=== PATIENT | female | born 1990 | race Caucasian/White ===

== ENCOUNTER 2017-09-05 05:02 | Emergency (ER) | payer OTHER ==
[~2017-09-05] VITALS: Ht 152.4 cm; Wt 74.8 kg
[~2017-09-05 05:02] MED LIST: ACETAMINOPHEN-O1 TAB PO; AMOXICILLIN500 M2 PO; AMOXICILLIN500 MG PO; AMOXIL500 MG PO; ATARAX25 MG PO; BACTROBAN CREAM15 GM T; CELEXA20 MG PO; CEPHALEXIN500 M1 PO; CIPRO250 MG PO; CIPRO500 MG PO; CIPROFLOXACIN500 MG PO; CLEOCIN150 MG PO; CLINDAMYCIN HC300 MG PO; CORDROL20 MG PO; DARVOCET N 1001 TAB PO; DIAZEPAM10 M1 PO; DICLEGIS DR 101 EACH PO; DIFLUCAN150 MG PO; EES400 MG PO; FIORICET 325 MG1 TAB PO; FLAGYL500 MG PO; FLONASE 0.05% 121 EA NAS; GLYCERIN SUPPOS1 SU4 RC; HYDROCODONE BIT1 T11 PO; IBU800 M1 PO; KEFLEX500 MG PO; KLONOPIN1 M1 PO; LAMICTAL25 MG PO; LAMISIL1% T; LAMOTRIGINE100 MG PO; LAMOTRIGINE25 M1 PO; LIDEX0.05% T; LOMOTIL 0.025 M1 TA1 PO; MACROBID100 M1 PO; MEDROL DOSEPAK4 MG PO; MEDROL4 MG PO; MOTRIN600 MG PO; MOTRIN800 MG PO; NAPROSYN500 MG PO; NITROFURANTOIN100 M2 PO; NKHM; NYSTATIN CREAM15 GM T; PEN-VEE K500 MG PO; PERCOCET 325 MG1 TA2 PO; PHENERGAN W/DM120 ML PO; PHENERGAN25 M1 PO; PREDNICOT10 MG PO; PREDNICOT20 MG PO; PRENATAL1 TA2 PO; PRENATAL1 TA3 PO; PYRIDIUM100 MG PO; Peridex 473 ML473 ML PO; Phenergan25 MG PO; TESSALON PERLE200 MG PO; ULTRAM50 MG PO; VALIUM10 MG PO; VIBRAMYCIN100 MG PO; VICODIN 5/500 505 MG PO; VICODIN 500 MG-1 TAB PO; XYLOCAINE VISCO20 ML MM; ZANTAC150 MG PO; ZITHROMAX Z PA250 MG PO; ZITHROMAX250 MG PO; ZOFRAN ODT4 MG SL; ZOFRAN4 MG PO; ZYRTEC10 MG PO; Zofran4 MG PO
[2017-09-05] MEDS ORDERED: LAMICTAL ODT50 MG PO (05:10)
[2017-09-05] MEDS ORDERED: VALIUM5 MG PO (05:10)
[2017-09-05 06:22] LABS: BILIRUBIN NEGATIVE (NEGATIVE); BLOOD NEGATIVE (NEGATIVE); CLARITY SL CLOUDY (CLEAR); COLOR YELLOW (YELLOW); GLUCOSE NEGATIVE (NEGATIVE); KETONE NEGATIVE (NEGATIVE); LEUKO ESTERASE NEGATIVE (NEGATIVE); NITRITE NEGATIVE (NEGATIVE); PH 6.5 (5.0-9.0); UROBILINOGEN 0.2 E.U./dl (0.2-1.0)
[2017-09-05 06:29] LABS: URINE AMPHETAMINES < 1000 (1000ng/ml); URINE BARBITURATES < 200 (200ng/ml); URINE BENZODIAZEPINES > 200 (200ng/ml); URINE CANNABINOIDS (THC) < 50 (50ng/ml); URINE COCAINE > 300 (300ng/ml); URINE METHADONE < 300 (300ng/ml); URINE OPIATES < 300 (300ng/ml)
[2017-09-05 06:31] LABS: URINE PHENCYCLIDINE < 25 (25ng/ml)
[2017-09-05 06:49] LABS: BASO % 0.1 % (0.0-1.0); EOS # 0.1 10*3/uL (0.0-0.4); EOS % 0.9 % (1.0-4.0); HEMATOCRIT 36.8 % (37.0-47.0); HEMOGLOBIN 12.3 g/dl (12.0-16.0); LYMPH # 2.5 10*3/uL (1.3-4.4); LYMPH % 26.1 % (27.0-41.0); MEAN CELL VOLUME 87.6 fl (81.0-99.0); MEAN CORPUSCULAR HGB 29.3 pg (27.0-31.0); MEAN CORPUSCULAR HGB CONC 33.4 g/dl (33.0-37.0); MEAN PLATELET VOLUME 8.9 fl (9.6-12.3); MONO # 0.6 10*3/uL (0.1-1.0); MONO % 6.2 % (3.0-9.0); NEUT # 6.4 10*3/uL (2.3-7.9); NEUT % 66.4 % (47.0-73.0); PLATELET COUNT AUTOMATED 227 10*3/uL (130-400); RED CELL DISTRI WIDTH 13.2 % (0-14.5); WHITE BLOOD COUNT 9.7 10*3/uL (4.8-10.8)
[2017-09-05 07:08] LABS: ALBUMIN 3.4 gm/dl (3.1-4.5); ALKALINE PHOSPHATASE 81 U/L (45-117); BUN 15 mg/dl (7-24); CHLORIDE 102 mmol/L (98-107); CREATININE 0.78 mg/dL (0.55-1.02); POTASSIUM 3.8 mmol/L (3.5-5.1); SGOT/AST 22 IU/L (3-35); SGPT/ALT 17 U/L (12-78); SODIUM 136 mmol/L (136-145); TOTAL PROTEIN 6.9 gm/dL (6.4-8.2)
== END 2017-09-05 08:03 | disposition short-term general hospital (02) ==
LOC: ED 05:02
PROVIDERS: Student in an Organized Health Care Education/Training Program
DX: R33.9 Retention of urine, unspecified (principal); M62.81 Muscle weakness (generalized); M54.5 Low back pain; M25.552 Pain in left hip; W01.0XXA Fall on same level from slipping, tripping and stumbling without subsequent striking against object, initial encounter; Y93.89 Activity, other specified; Y92.89 Other specified places as the place of occurrence of the external cause; Y99.9 Unspecified external cause status

== ENCOUNTER 2017-11-19 14:22 | Emergency (ER) | payer SELFPAY ==
[~2017-11-19] VITALS: Wt 72.6 kg
[~2017-11-19 14:22] MED LIST changes: +LAMICTAL ODT50 MG PO; +VALIUM5 MG PO
[2017-11-19] MEDS ORDERED: NAPROSYN500 MG PO (15:25)
[2017-11-19] MEDS ORDERED: CEPHALEXIN500 M1 PO (15:25)
== END 2017-11-19 15:55 | disposition home or self-care (01) ==
LOC: ED 14:22
DX: S91.012A Laceration without foreign body, left ankle, initial encounter (principal); S93.402A Sprain of unspecified ligament of left ankle, initial encounter; E66.9 Obesity, unspecified; F17.200 Nicotine dependence, unspecified, uncomplicated; W25.XXXA Contact with sharp glass, initial encounter; Y93.89 Activity, other specified; Y92.098 Other place in other non-institutional residence as the place of occurrence of the external cause; Y99.9 Unspecified external cause status

== ENCOUNTER 2018-03-15 20:43 | Emergency (ER) | payer SELFPAY ==
[~2018-03-15] VITALS: Ht 154.9 cm; Wt 77.1 kg
[2018-03-15] MEDS ORDERED: HYDROXYZINE HCL25 MG PO (22:14)
[2018-03-15] MEDS ORDERED: KLONOPIN1 M1 PO (22:15)
== END 2018-03-15 22:22 | disposition home or self-care (01) ==
LOC: ED 20:43
DX: F41.9 Anxiety disorder, unspecified (principal); F32.9 Major depressive disorder, single episode, unspecified

== ENCOUNTER 2018-06-05 13:29 | Emergency (ER) | payer OTHER ==
[~2018-06-05 13:29] MED LIST changes: +HYDROXYZINE HCL25 MG PO
== END 2018-06-05 14:24 | disposition home or self-care (01) ==
LOC: ED 13:29
DX: K04.7 Periapical abscess without sinus (principal); F17.200 Nicotine dependence, unspecified, uncomplicated; Z79.2 Long term (current) use of antibiotics; Z79.899 Other long term (current) drug therapy

== ENCOUNTER 2019-08-27 16:40 | Emergency (ER) | payer SELFPAY ==
[~2019-08-27] VITALS: Ht 152.4 cm; Wt 70.3 kg
[2019-08-27] MEDS ORDERED: XANAX2 M1 PO (17:50)
== END 2019-08-27 17:55 | disposition home or self-care (01) ==
LOC: ED 16:40
DX: F41.9 Anxiety disorder, unspecified (principal); Z76.0 Encounter for issue of repeat prescription; Z79.899 Other long term (current) drug therapy; Z79.2 Long term (current) use of antibiotics; Z96.22 Myringotomy tube(s) status; Z87.442 Personal history of urinary calculi; Z86.14 Personal history of Methicillin resistant Staphylococcus aureus infection

== ENCOUNTER 2019-12-08 21:40 | Emergency (ER) | payer OTHER ==
[~2019-12-08] VITALS: Ht 167.6 cm; Wt 86.2 kg
[~2019-12-08 21:40] MED LIST changes: +XANAX2 M1 PO
[2019-12-09] MEDS ORDERED: IBU800 MG PO (00:56)
[2019-12-09] MEDS ORDERED: CLEOCIN HCL150 MG PO (00:56)
== END 2019-12-09 01:47 | disposition home or self-care (01) ==
LOC: ED 21:40
DX: S02.5XXA Fracture of tooth (traumatic), initial encounter for closed fracture (principal); K04.7 Periapical abscess without sinus; X58.XXXA Exposure to other specified factors, initial encounter; Y93.89 Activity, other specified; Y92.89 Other specified places as the place of occurrence of the external cause; Y99.8 Other external cause status

== ENCOUNTER 2022-10-11 20:19 | Emergency (ER) | payer OTHER ==
[~2022-10-11 20:19] MED LIST changes: +CLEOCIN HCL150 MG PO; +IBU800 MG PO
== END 2022-10-11 21:51 | disposition home or self-care (01) ==
LOC: ED 20:19
DX: S80.02XA Contusion of left knee, initial encounter (principal); S80.212A Abrasion, left knee, initial encounter; L50.9 Urticaria, unspecified; F41.9 Anxiety disorder, unspecified; Z87.442 Personal history of urinary calculi; Z98.890 Other specified postprocedural states; W01.0XXA Fall on same level from slipping, tripping and stumbling without subsequent striking against object, initial encounter; Y93.89 Activity, other specified; Y92.009 Unspecified place in unspecified non-institutional (private) residence as the place of occurrence of the external cause; Y99.8 Other external cause status

== ENCOUNTER 2023-11-14 19:36 | Emergency (ER) | payer OTHER ==
[~2023-11-14] VITALS: Ht 152.4 cm; Wt 81.6 kg
[2023-11-14] MEDS ORDERED: fentaNYL CITRATE 100 MCG/2 ML VIAL IV ONE (20:10)
== END 2023-11-14 22:20 | disposition home or self-care (01) ==
LOC: ED 19:36
DX: S20.212A Contusion of left front wall of thorax, initial encounter (principal); S00.12XA Contusion of left eyelid and periocular area, initial encounter; S10.91XA Abrasion of unspecified part of neck, initial encounter; F41.9 Anxiety disorder, unspecified; Z79.2 Long term (current) use of antibiotics; Z79.899 Other long term (current) drug therapy; Z96.22 Myringotomy tube(s) status; Y04.2XXA Assault by strike against or bumped into by another person, initial encounter; Y93.89 Activity, other specified; Y92.89 Other specified places as the place of occurrence of the external cause; Y99.8 Other external cause status